=== PATIENT | male | born 1995 | race African-American/Black ===

== ENCOUNTER 2023-06-13 06:13 | Emergency (ER) | payer OTHER ==
[~2023-06-13] VITALS: Ht 180.3 cm; Wt 83.2 kg
[2023-06-13] MEDS ORDERED: PERTUSS(ACELL),DIPH,TET VAC/PF 0.5 ML SYRINGE IM. ONE (06:45)
[2023-06-13] MEDS ORDERED: LIDOCAINE 1% 10 ML VIAL SQ ONE (06:45)
[2023-06-13 06:47] VITALS: TEMP 98.2
[2023-06-13] MEDS ORDERED: KETOROLAC TROMETHAMINE 60 MG/2 ML VIAL IM ONE (07:45)
[2023-06-13] MEDS ORDERED: IBUP-1492 PO (13:23)
[2023-06-13 13:34] VITALS: BP 101/63; PULSE 80; RESP 16
== END 2023-06-13 14:12 | disposition home or self-care (01) ==
LOC: EMS 06:15
DX: S01.01XA Laceration without foreign body of scalp, initial encounter (principal); M79.652 Pain in left thigh; M79.651 Pain in right thigh; F32.A Depression, unspecified; F14.90 Cocaine use, unspecified, uncomplicated; Z88.8 Allergy status to other drugs, medicaments and biological substances; Y04.8XXA Assault by other bodily force, initial encounter; Y93.89 Activity, other specified; Y92.89 Other specified places as the place of occurrence of the external cause; Y99.8 Other external cause status
CPT/HCPCS: 99285; 70486; 73551; 90715; 90471; 12011; 96372; J1885; J3490